=== PATIENT | male | born 1970 | race Caucasian/White ===

== ENCOUNTER 2017-11-08 14:06 | Emergency (ER) | payer OTHER ==
[2017-11-08 14:57] VITALS: RESP 16; TEMP 99
--- NOTE | 2017-11-08 15:29 | EDPHY ---
H & P Stated Complaint: fall L eye injury Time Seen by Provider: 11/08/17 15:09 - Personal History Current Tetanus/Diphtheria Vaccine: Unsure Current Tetanus Diphtheria and Acellular Pertussis (TDAP): Unsure - Medical/Surgical History Hx Asthma: No Hx Chronic Respiratory Disease: No Hx Diabetes: No Hx Cardiac Disease: No Hx Renal Disease: No Hx Cirrhosis: No Hx Alcoholism: No Hx HIV/AIDS: No Hx Splenectomy or Spleen Trauma: No Other PMH: scarlet fever - Social History Smoking Status: Former smoker Constitutional: Initial Vital Signs Temperature (C) 37.2 C 11/08/17 14:54 Heart Rate 69 11/08/17 14:54 Respiratory Rate 16 11/08/17 14:54 Blood Pressure 127/83 H 11/08/17 14:54 O2 Sat (%) 98 11/08/17 14:54 O2 Delivery Mode Room Air Allergies/Adverse Reactions: No Known Allergies Allergy (Unverified 11/08/17 14:53) Home Medications: Medication Instructions Recorded Bacitracin Ophthalmic 3.5 gm OP TID 7 Days opht.oint 11/08/17 Nicoderm Cq 11/08/17 Ofloxacin 0.3% [Ocuflox 0.3%] 1 drops OP QID #1 opht.btl 11/08/17 Ofloxacin 0.3% [Ocuflox 0.3%] 2 drops OP QID #1 opht.btl 11/08/17 Medical Decision Making ED Course/Re-evaluation: CHIEF COMPLAINT: Facial abrasions and contusions HISTORY OF PRESENT ILLNESS: 47-year-old gentleman who this past day was carrying firewood into his house and slipped on the ice on the steps. He was unwitnessed 20 fell. He hit the left side of his face and forehead. He had been doing fairly well however his came home from a trip and saw the abrasions on his face and the upper forehead acute issues and sent to the emergency department for evaluation. Patient denies any neurologic deficits. Patient denies any nausea vomiting. Patient denies any visual disturbances. REVIEW OF SYSTEMS: A 10 point review of systems was performed and is negative with the exception of the elements mentioned in the history of present illness. PHYSICAL EXAM: HR, BP, O2 Sat, RR. Temp noted, including visual acuity of 20/25 bilaterally General Appearance: Alert, well hydrated, appropriate, and non-toxic appearing. Head: A few abrasions and contusions Atraumatic without scalp tenderness or obvious injury Eyes: No entrapment, Pupils equal, round, reactive to light and accommodation, EOMI, traumatic conjunctiva hemorrhage on the left lateral quadrant cornea is spared, no injection. Ears: Clear bilaterally, no perforation, normal landmarks Nose: Atraumatic, no rhinorrhea, clear. Throat: There is no erythema or exudates, no lesions, normal tonsils, mucus membranes moist. Neck: Supple, 2+ carotid upstroke, nontender, no lymphadenopathy. Respiratory: No retractions, no distress, no wheezes, and no accessory muscle use. Lungs are clear to auscultation bilaterally. Cardiovascular: Regular rate and rhythm, no murmurs, rubs, or gallops. Bilateral carotid, radial, dorsalis pedis, and posterior tibial pulses intact. Good capillary refill all extremities. Gastrointestinal: Abdomen is soft, nontender, non-distended, no masses, no rebound, no guarding, no peritoneal signs. Musculoskeletal: Normal active ROM of all extremities, atraumatic. Neurological: Alert, appropriate, and interactive. The patient has normal DTRs and non-focal cranial nerves, motor, sensory, and cerebellar exam. Skin: Some healing abrasions on left forehead and left cheek No rashes, good turgor, no nodules on palpation. Past medical history: None Past surgical history: None Family history: Noncontributory Social history: employed does not abuse tobacco drugs or alcohol DIAGNOSTICS/PROCEDURES/CRITICAL CARE TIME: Not indicated based on negative T[place] head CT rules set and the fact that this injury happened 2 days ago in the pretest probability for traumatic brain injury is exceedingly low with no symptoms. Radiation risk outweighs benefit DIFFERENTIAL DIAGNOSIS: The differential diagnosis for the patient's trauma included but was not limited to intracranial injury, long bone and pelvic bone fractures, spinal injury, intra-abdominal injury, and intra-thoracic injury. MEDICAL DECISION MAKING: This patient has a few well-healing abrasions. I will give him some bacitracin ophthalmic ointment to use around the corner of his eye and on his face. Additionally, he will use some Ocuflox. He will follow up with primary care physician as indicated. There is no evidence of globe trauma. Departure - Departure Disposition: Home, Routine, Self-Care Clinical Impression: Abrasion Conjunctivitis Qualifiers: Conjunctivitis type: other Laterality: unspecified laterality Qualified Code(s) : H10.89 - Other conjunctivitis Condition: Good Instructions: Abrasion (ED), Conjunctivitis (ED) Additional Instructions: Use eye drops as directed. Follow up with your primary care provider on Friday for unimproved symptoms. Return to the ED for worsening of condition. Referrals: NONE *PRIMARY CARE P,. [Primary Care Provider] - As per Instructions [facility],. [Clinic] - As per Instructions Prescriptions: Bacitracin Ophthalmic 3.5 gm OP TID 7 Days opht.oint Ofloxacin 0.3% [Ocuflox 0.3%] 1 drops OP QID #1 opht.btl Ofloxacin 0.3% [Ocuflox 0.3%] 2 drops OP QID #1 opht.btl
[2017-11-08 15:42] VITALS: BP 132/78; PULSE 64; O2SAT 97
== END 2017-11-08 15:40 | disposition home or self-care (01) ==
DX: S00.81XA Abrasion of other part of head, initial encounter (principal); H10.89 Other conjunctivitis; Z87.891 Personal history of nicotine dependence; W00.1XXA Fall from stairs and steps due to ice and snow, initial encounter; Y92.009 Unspecified place in unspecified non-institutional (private) residence as the place of occurrence of the external cause